=== PATIENT | female | born 1975 | race Two or more races ===

== ENCOUNTER 2021-04-14 09:08 | Emergency (ER) | payer OTHER ==
[~2021-04-14] VITALS: Ht 160 cm; Wt 68.0 kg
[2021-04-14] MEDS ORDERED: EFFEXOR XR75 MG PO (09:18)
[2021-04-14] MEDS ORDERED: WELLBUTRIN XL300 MG PO (09:19)
[2021-04-14] MEDS ORDERED: AMBIEN10 MG PO (09:20)
[2021-04-14] MEDS ORDERED: SONATA10 MG PO (09:20)
[2021-04-14] MEDS ORDERED: BUSPIRONE HCL10 MG PO (09:21)
== END 2021-04-14 17:16 | disposition home or self-care (01) ==
LOC: ER 09:08
DX: A05.9 Bacterial foodborne intoxication, unspecified (principal)